=== PATIENT | female | born 1990 | race Caucasian/White ===

== ENCOUNTER 2023-07-17 09:38 | Emergency (ER) | payer SELFPAY ==
[~2023-07-17] VITALS: Ht 160 cm; Wt 90.0 kg
[2023-07-17 09:41] VITALS: O2SAT 95
[2023-07-17 10:15] LABS: CHLORIDE 111 mEq/L (98-107); POTASSIUM 3.8 mEq/L (3.5-5.1); SODIUM 141 mEq/L (136-145)
[2023-07-17 10:17] LABS: BASOPHILS % 0.3 % (0.0-2.0); CALCIUM 8.5 mg/dL (8.7-10.4); EOSINOPHILS % 0.5 % (0.0-5.0); HEMATOCRIT. 40.5 % (36.0-48.0); LYMPHOCYTES % 24.4 % (20.0-50.0); MEAN CORPUSCULAR HEMOGLOBIN 31.1 pg (28.0-32.0); MEAN CORPUSCULAR HGB CONC 34.5 g/dL (31.0-37.0); MEAN PLATELET VOLUME 7.6 fl (7.4-10.4); NEUTROPHILS % 69.8 % (40.0-76.0); PLATELET 371 x1000/uL (130-400); RED CELL DISTRIBUTION WIDTH 12.9 % (11.6-14.6)
[2023-07-17 10:21] LABS: CREATININE 0.7 mg/dL (0.6-1.0); GLUCOSE 124 mg/dL (70-105); UREA NITROGEN BLOOD 9 mg/dL (9-23)
[2023-07-17 10:33] LABS: TROPONIN I HIGH SENSITIVITY < 4 ng/L (3.0-34)
[2023-07-17 10:51] LABS: CARBON DIOXIDE 17 mEq/L (21-32)
[2023-07-17] MEDS: TETANUS, DIPHTHERIA, PERTUSSIS VAC/PF 0.5ML (>10YR OLD) IM ONE (11:11)
[2023-07-17] MEDS: HYDROCODONE/ACETAMINOPHEN 5/325MG TABLET PO ONE (11:19)
[2023-07-17 13:17] VITALS: BP 105/61; PULSE 96; RESP 19; TEMP 98.7
== END 2023-07-17 13:28 | disposition home or self-care (01) ==
LOC: ER 09:38
DX: S01.81XA Laceration without foreign body of other part of head, initial encounter (principal); R55 Syncope and collapse; W18.39XA Other fall on same level, initial encounter; Y93.89 Activity, other specified; Y92.89 Other specified places as the place of occurrence of the external cause; Y99.8 Other external cause status
CPT/HCPCS: 80048; 81025; 82962; 85025; 84484; 36415; 71045; 70450; 90715; 93005; 12001; 90471; 99285; Z7610 ×2